=== PATIENT | male | born 1960 | race Caucasian/White ===

== ENCOUNTER → 2017-12-16 | Outpatient (CLI) | payer OTHER ==
--- NOTE | 2017-12-16 14:17 | MR ---
EXAMINATION TYPE: MR lumbar spine wo con DATE OF EXAM: 12/16/2017 COMPARISON: HISTORY: Intervertebral disc degeneration, lumbar CONTRAST: 0 mL intravenous . TECHNIQUE: Multiplanar, multisequence images of the lumbar spine were acquired. FINDINGS: L5-S1: There is some central disc bulge with anterior thecal sac contact. No spinal canal stenosis or nerve root impingement or foraminal stenosis is evident. Mild facet hypertrophy is present. L4-L5: Central focal disc bulge is present with moderate anterior thecal sac compression. No AP spina l canal stenosis is present. Severe right foraminal narrowing is present secondary to disc material .. L3-L4: Mild disc bulge has anterior thecal sac flattening. No spinal canal stenosis. No foraminal s tenosis. . L2-L3: Mild disc bulge has anterior thecal sac flattening. No focal disc herniation is evident. No s birgit canal stenosis. No foraminal stenosis. . L1-L2: No significant disc bulge or disc herniation. No spinal canal stenosis. No foraminal stenosi s. . T12-L1: No significant disc bulge or disc herniation. No spinal canal stenosis. No foraminal stenos is. . IMPRESSION: 1. Mild disc bulging mid to lower lumbar spine. 2. Central focal bulging L4-5 with moderate anterior thecal sac compression without stenosis. 3. Severe right foraminal stenosis L4-5. Correlate with right L5 radicular symptoms.
== END | disposition home or self-care (01) ==
LOC: RADMRIMAIN 10:20
PROVIDERS: ATTEND Family Medicine
DX: M99.73 Connective tissue and disc stenosis of intervertebral foramina of lumbar region (principal); M51.26 Other intervertebral disc displacement, lumbar region
CPT/HCPCS: 72148

== ENCOUNTER 2019-01-10 11:46 | Observation (INO) | payer OTHER ==
[2019-01-10] MEDS ORDERED: NITROGLYCERIN OINT 1 INCH/GM PACKET TOPICAL STA (12:26)
[2019-01-10] MEDS ORDERED: ASPIRIN 81 MG PO STA (12:26)
--- NOTE | 2019-01-10 12:29 | ED ---
General Adult HPI - General Chief complaint: Chest Pain Stated complaint: chest pain Time Seen by Provider: 01/10/19 12:12 Source: patient, RN notes reviewed Mode of arrival: ambulatory Limitations: no limitations - History of Present Illness Initial comments: Patient is a pleasant 58-year-old male presenting to the emergency Department with complaints of chest discomfort. Patient did have a compression fracture of the mid back once ago and has had some mild chest discomfort since that time. Patient was told this was related to his back however is not getting better. Patient states symptoms have worsened over the past few days. Discomfort feels like pressure. There is some radiation towards the back. Patient is unclear whether or not this could be related with his compression fracture. Patient states discomfort does increase with deep breaths otherwise no dyspnea. No nausea. No diaphoresis. No leg pain or leg swelling. Patient does have history of previous pulmonary embolism. - Related Data Home Medications Medication Instructions Recorded Confirmed Acetaminophen [Tylenol] 650 mg PO TID PRN 01/10/19 01/10/19 Albuterol Sulfate [Proair Hfa] 2 puff INHALATION RT-Q6H PRN 01/10/19 01/10/19 Atorvastatin [Lipitor] 20 mg PO DAILY 01/10/19 01/10/19 Baclofen [Lioresal] 10 mg PO DAILY PRN 01/10/19 01/10/19 Cholecalciferol [Vitamin D3 (25 1,000 unit PO DAILY 01/10/19 01/10/19 Mcg = 1000 Iu)] Loratadine [Claritin] 10 mg PO DAILY 01/10/19 01/10/19 Meloxicam 15 mg PO DAILY 01/10/19 01/10/19 Omeprazole 20 mg PO BID 01/10/19 01/10/19 lamoTRIgine [LaMICtal] 25 mg PO BID 01/10/19 01/10/19 Allergies Allergy/AdvReac Type Severity Reaction Status Date / Time No Known Allergies Allergy Verified 01/10/19 12:49 Review of Systems ROS Statement: Those systems with pertinent positive or pertinent negative responses have been documented in the HPI. ROS Other: All systems not noted in ROS Statement are negative. Constitutional: Denies: fever Eyes: Denies: eye pain ENT: Denies: ear pain Respiratory: Denies: cough, dyspnea Cardiovascular: Reports: chest pain Endocrine: Denies: fatigue Gastrointestinal: Denies: abdominal pain Genitourinary: Denies: dysuria Musculoskeletal: Reports: as per HPI Skin: Denies: rash Neurological: Denies: weakness Past Medical History Past Medical History: Asthma Additional Past Medical History / Comment(s): chronic back pain History of Any Multi-Drug Resistant Organisms: None Reported Past Psychological History: No Psychological Hx Reported Smoking Status: Never smoker Past Alcohol Use History: None Reported Past Drug Use History: None Reported General Exam Limitations: no limitations General appearance: alert, in no apparent distress Head exam: Present: atraumatic Eye exam: Present: normal appearance ENT exam: Present: normal oropharynx Neck exam: Present: normal inspection Respiratory exam: Present: normal lung sounds bilaterally. Absent: chest wall tenderness Cardiovascular Exam: Present: regular rate, normal rhythm Expanded Peripheral pulses: 2+: Radial (R), Radial (L), Dorsalis Pedis (R), Dorsalis Pedis (L) GI/Abdominal exam: Present: soft. Absent: tenderness Extremities exam: Present: normal inspection. Absent: pedal edema, calf tenderness Back exam: Present: normal inspection. Absent: tenderness Neurological exam: Present: alert Psychiatric exam: Present: normal affect, normal mood Skin exam: Present: normal color Course Vital Signs 01/10/19 01/10/19 01/10/19 11:57 13:00 13:23 Temperature 98.4 F Pulse Rate 77 Respiratory 18 16 16 Rate Blood Pressure 169/91 130/93 O2 Sat by Pulse 98 97 Oximetry 01/10/19 14:00 Temperature Pulse Rate 70 Respiratory 16 Rate Blood Pressure 152/90 O2 Sat by Pulse 97 Oximetry EKG Findings - EKG Comments: EKG Findings:: Normal sinus rhythm 78. DC 158. QRS 90. QT 350. QTC 399. Normal axis. Normal QRS. No acute ST change. Medical Decision Making - Medical Decision Making Patient reevaluated and updated. Case was discussed with Dr. Aguilar, who will admit covering for hospital call. - Lab Data Result diagrams: 01/10/19 13:02 01/10/19 13:02 Lab Results 01/10/19 01/10/19 01/10/19 Range/Units 13:02 13:02 13:02 WBC 7.3 (3.8-10.6) k/uL RBC 4.55 (4.30-5.90) m/uL Hgb 13.7 (13.0-17.5) gm/dL Hct 40.5 (39.0-53.0) % MCV 89.1 (80.0-100.0) fL MCH 30.2 (25.0-35.0) pg MCHC 33.9 (31.0-37.0) g/dL RDW 13.9 (11.5-15.5) % Plt Count 181 (150-450) k/uL Neutrophils % 54 % Lymphocytes % 31 % Monocytes % 7 % Eosinophils % 5 % Basophils % 1 % Neutrophils # 3.9 (1.3-7.7) k/uL Lymphocytes # 2.3 (1.0-4.8) k/uL Monocytes # 0.5 (0-1.0) k/uL Eosinophils # 0.4 (0-0.7) k/uL Basophils # 0.1 (0-0.2) k/uL PT 10.3 (9.0-12.0) sec INR 1.0 (<1.2) APTT 23.4 (22.0-30.0) sec Sodium 140 (137-145) mmol/L Potassium 4.3 (3.5-5.1) mmol/L Chloride 105 (98-107) mmol/L Carbon Dioxide 28 (22-30) mmol/L Anion Gap 7 mmol/L BUN 18 (9-20) mg/dL Creatinine 0.95 (0.66-1.25) mg/dL Est GFR (CKD-EPI)AfAm >90 (>60 ml/min/1.73 sqM) Est GFR (CKD-EPI)NonAf 89 (>60 ml/min/1.73 sqM) Glucose 106 H (74-99) mg/dL Calcium 8.9 (8.4-10.2) mg/dL Magnesium 1.7 (1.6-2.3) mg/dL Total Bilirubin 0.3 (0.2-1.3) mg/dL AST 23 (17-59) U/L ALT 29 (21-72) U/L Alkaline Phosphatase 37 L (38-126) U/L Troponin I (0.000-0.034) ng/mL Total Protein 6.2 L (6.3-8.2) g/dL Albumin 3.9 (3.5-5.0) g/dL 01/10/19 Range/Units 13:02 WBC (3.8-10.6) k/uL RBC (4.30-5.90) m/uL Hgb (13.0-17.5) gm/dL Hct (39.0-53.0) % MCV (80.0-100.0) fL MCH (25.0-35.0) pg MCHC (31.0-37.0) g/dL RDW (11.5-15.5) % Plt Count (150-450) k/uL Neutrophils % % Lymphocytes % % Monocytes % % Eosinophils % % Basophils % % Neutrophils # (1.3-7.7) k/uL Lymphocytes # (1.0-4.8) k/uL Monocytes # (0-1.0) k/uL Eosinophils # (0-0.7) k/uL Basophils # (0-0.2) k/uL PT (9.0-12.0) sec INR (<1.2) APTT (22.0-30.0) sec Sodium (137-145) mmol/L Potassium (3.5-5.1) mmol/L Chloride (98-107) mmol/L Carbon Dioxide (22-30) mmol/L Anion Gap mmol/L BUN (9-20) mg/dL Creatinine (0.66-1.25) mg/dL Est GFR (CKD-EPI)AfAm (>60 ml/min/1.73 sqM) Est GFR (CKD-EPI)NonAf (>60 ml/min/1.73 sqM) Glucose (74-99) mg/dL Calcium (8.4-10.2) mg/dL Magnesium (1.6-2.3) mg/dL Total Bilirubin (0.2-1.3) mg/dL AST (17-59) U/L ALT (21-72) U/L Alkaline Phosphatase (38-126) U/L Troponin I <0.012 (0.000-0.034) ng/mL Total Protein (6.3-8.2) g/dL Albumin (3.5-5.0) g/dL - Radiology Data Radiology results: report reviewed (Computed tomography scan of the chest shows no pulmonary embolism. Thoracic compression deformity. Hepatic lesion.) Disposition Clinical Impression: Chest pain Disposition: ADMITTED IP TO THIS HOSP Is patient prescribed a controlled substance at d/c from ED?: No Referrals: Nonstaff,Physician [Primary Care Provider] - 1-2 days Decision Time: 15:58
[2019-01-10 13:18] LABS: Basophils # (A) 0.1 k/uL (0-0.2); Basophils % (A) 1 %; Eosinophils # (A) 0.4 k/uL (0-0.7); Eosinophils % (A) 5 %; HCT 40.5 % (39.0-53.0); HGB 13.7 gm/dL (13.0-17.5); Lymphocytes # (A) 2.3 k/uL (1.0-4.8); Lymphocytes % (A) 31 %; MCH 30.2 pg (25.0-35.0); MCHC 33.9 g/dL (31.0-37.0); MCV 89.1 fL (80.0-100.0); Mean Platelet Volume 7.5; Monocytes # (A) 0.5 k/uL (0-1.0); Monocytes % (A) 7 %; Neutrophils # (A) 3.9 k/uL (1.3-7.7); Neutrophils % (A) 54 %; Platelet Count 181 k/uL (150-450); RBC 4.55 m/uL (4.30-5.90); RDW 13.9 % (11.5-15.5); WBC 7.3 k/uL (3.8-10.6)
[2019-01-10 13:34] LABS: ALT 29 U/L (21-72); AST 23 U/L (17-59); African American GFR (CKD) >90 (>60 ml/min/1.73 sqM); Albumin 3.9 g/dL (3.5-5.0); Alkaline Phosphatase 37 U/L (38-126); Anion Gap 7 mmol/L; Blood Urea Nitrogen 18 mg/dL (9-20); Calcium 8.9 mg/dL (8.4-10.2); Carbon Dioxide 28 mmol/L (22-30); Chloride 105 mmol/L (98-107); Glucose 106 mg/dL (74-99); Magnesium 1.7 mg/dL (1.6-2.3); Partial Thromboplastin Time 23.4 sec (22.0-30.0); Potassium 4.3 mmol/L (3.5-5.1); Prothrombin Time 10.3 sec (9.0-12.0); Sodium 140 mmol/L (137-145); Total Bilirubin 0.3 mg/dL (0.2-1.3); Total Protein 6.2 g/dL (6.3-8.2)
--- NOTE | 2019-01-10 15:20 | CT ---
EXAMINATION TYPE: CT angio chest DATE OF EXAM: 01/10/2019 COMPARISON: NONE HISTORY: Mid chest pain. History of PE and thoracic compression fracture. CT DLP: 472.2 mGycm. Automated Exposure Control for Dose Reduction was Utilized. CONTRAST: CTA scan of the thorax is performed with IV Contrast, patient injected with 100 mL of Isovue 370, pul monary embolism protocol. MIP Images are created on CT scanner and reviewed. FINDINGS: LUNGS: The lungs are grossly clear, there is no concerning parenchymal mass or nodule identified. T here is no pleural effusion or pneumothorax seen. The tracheobronchial tree is patent. MEDIASTINUM: There is satisfactory enhancement of the pulmonary artery and its branches, there is no CT evidence for pulmonary embolism. There are no greater than 1 cm hilar or mediastinal lymph nodes. No cardiomegaly or pericardial effusion is seen. Probable residual thymic tissue is strand-like in the superior mediastinum. This does not have a well formed masslike appearance. OTHER: Mild multilevel degenerative disc disease of the thoracic spine is seen. Midthoracic compressi on deformity is mild with height loss of approximately-15% and superior endplate Schmorl's node. Too small to accurately characterize hepatic lesion measures 7 mm on series 401 image 138. IMPRESSION: 1. No evidence of pulmonary embolism. 2. No focal consolidation, pneumothorax. 3. Midthoracic compression deformity is mild and known to the patient per history. 4. Incidentally noted 2 small to accurately characterize 7 mm hepatic lesion and probable residual th ymic tissue in the superior mediastinum
[2019-01-10] MEDS ORDERED: NITROGLYCERIN SL TABS 0.4 MG TAB SUBLINGUAL PRN (15:58)
[2019-01-10] MEDS: NITROGLYCERIN OINT 1 INCH/GM PACKET TOPICAL SCH ×2 (18:09→23:22)
[2019-01-10] MEDS ORDERED: ACETAMINOPHEN TAB 325 MG TAB PO PRN (18:35)
[2019-01-10] MEDS ORDERED: BACLOFEN 10 MG TAB PO PRN (18:35)
[2019-01-10] MEDS ORDERED: ALBUTEROL NEBULIZED 2.5 MG/3 ML INHALATION PRN (18:35)
[2019-01-10] MEDS ORDERED: HYDROmorphone 0.5 MG/0.5 ML SYRINGE IVP PRN (18:37)
[2019-01-10] MEDS ORDERED: TEMAZEPAM 15 MG CAP PO PRN (18:37)
[2019-01-10] MEDS ORDERED: ALPRAZolam 0.25 MG TAB PO PRN (18:37)
--- NOTE | 2019-01-10 19:12 | XR ---
EXAMINATION TYPE: XR thoracic spine 2V DATE OF EXAM: 01/10/2019 COMPARISON: NONE HISTORY: Back pain TECHNIQUE: 3 views FINDINGS: Thoracic vertebra have normal spacing and alignment. Posterior elements are intact. There i s no paraspinal mass. There is no sign of compression fracture. IMPRESSION: Negative thoracic spine exam.
--- NOTE | 2019-01-10 19:14 | XR ---
EXAMINATION TYPE: XR chest 1V portable DATE OF EXAM: 01/10/2019 COMPARISON: NONE HISTORY: Chest pain TECHNIQUE: Single frontal view of the chest is obtained. FINDINGS: Heart and mediastinum are normal. Lungs are clear. Diaphragm is normal. Bony thorax appear s normal. There are chest leads. IMPRESSION: Normal chest
[2019-01-10] MEDS: lamoTRIgine 25 MG TAB PO SCH (19:59)
[2019-01-10] MEDS: HYDROcodone/APAP 5-325MG 1 EACH TAB PO PRN (20:00)
[2019-01-10] MEDS ORDERED: NON FORMULARY DRUG (Omeprazole [Omeprazole] 20 MG) PO SCH (21:00)
[2019-01-10] MEDS ORDERED: GABAPENTIN 300 MG CAP PO SCH (21:00)
[2019-01-10] MEDS ORDERED: HEPARIN SODIUM,PORCINE 5,000 UNIT/ML 1 ML VIAL SQ SCH (21:00)
[2019-01-10 21:16] LABS: Appearance,Urine Clear (Clear); Bilirubin,Urine Negative (Negative); Blood,Urine Negative (Negative); Color,Urine Yellow; Glucose,Urine (UA) Negative (Negative); Ketones,Urine Negative (Negative); Leukocyte Esterase,Urine Negative (Negative); Nitrite,Urine Negative (Negative); Protein,Urine Negative (Negative); Urobilinogen,Urine <2.0 mg/dL (<2.0)
[2019-01-10 21:18] LABS: Specific Gravity,Urine 1.049 (1.001-1.035)
--- NOTE | 2019-01-11 01:59 | HP ---
HISTORY AND PHYSICAL CHIEF COMPLAINT: Back pain. HISTORY OF PRESENT ILLNESS: This 58-year-old gentleman with a past medical history of asthma GERD, history of hypertension, history of DJD, history of pneumonia, history of pulmonary embolism [facility], was complaining of back pain. The patient apparently had a compression fracture discovered in September. The patient was complaints of back pain and neck pain. The patient came to [facility] and was admitted for evaluation treatment. Because of concerns of recurrent PE, a CTA chest was done which showed no evidence of pulmonary embolism and mid thoracic compression deformity with height loss about 15% was noted. There is no history of fever, rigors or chills. No history of headache, loss of consciousness or seizures at this time. PAST MEDICAL HISTORY: History of asthma, GERD, hypertension, hyperlipidemia, history of DJD, history of pulmonary embolism, chronic back pain. MEDICATIONS: 1. Neurontin 600 mg q.h.s. 3. Lioresal 10 mg daily p.r.n. 4. Albuterol 2 puffs q.6h p.r.n. 5. Tylenol 650 t.i.d. p.r.n. 6. Omeprazole 20 mg b.i.d. 7. Meloxicam 15 mg p.o. daily. 8. Lamictal 25 mg p.o. b.i.d. 9. Claritin 10 mg p.o. daily. 10.Vitamin D3 1000 daily. 11.Lipitor 20 mg daily. ALLERGIES: None. FAMILY HISTORY: History of cancer in the family. SOCIAL HISTORY: No history of smoking. Occasional alcohol intake. REVIEW OF SYSTEMS: ENT: No diminished vision. No diminished hearing. CARDIOVASCULAR: No angina. RESPIRATORY: As mentioned earlier. GI: No nausea, vomiting. : No dysuria. NERVOUS SYSTEM: No numbness or weakness. ALLERGY: No asthma or hayfever. MUSCULOSKELETAL: As mentioned earlier. HEMATOLOGY: No history of anemia. ENDOCRINE: No history of diabetes or hypothyroidism. CONSTITUTIONAL: As mentioned earlier. PSYCHIATRY: As mentioned earlier. PHYSICAL EXAMINATION: Alert and oriented x3. The pulse is 98, blood pressure 157/103, respiration 18, temperature 98.2, pulse ox 98% on room air HEENT: Conjunctivae normal. Oral mucosa moist. NECK: No jugular venous distention. No lymph node enlargement. CARDIOVASCULAR: S1, S2. RESPIRATORY: Diminished breath sounds at the bases. No rhonchi, no crackles. ABDOMEN: Soft, nontender. LEGS: No edema, no swelling. NERVOUS SYSTEM: Higher functions mentioned earlier. Moves all four limbs. No focal deficits. LYMPHATICS: No lymph node in neck or axilla. SKIN: No rash. JOINTS: No active deforming arthropathy. Examination of the back, some minimal tenderness present in the mid thoracic area. LAB: CBC within normal limits and glucose 106. Total protein 6.0. ASSESSMENT: 1. Severe back pain, neck pain possibly secondary to compression fracture mid thoracic area. 2. History of asthma. 3. Gastroesophageal reflux disease. 4. Hypertension. 5. Hyperlipidemia. 6. Degenerative joint disease. 7. History of pneumonia. 8. History of pulmonary embolism. 9. Chronic back pain. 10.Attention deficit disorder/attention deficit hyperactivity disorder. 11.Anxiety and depression. RECOMMENDATION AND DISCUSSION: This 58-year-old gentleman presented with multiple medical problems. At this time I recommend to continue current management, continue symptomatic treatment, resume home medications. Otherwise, we will consult Dr. Kaye for orthopedic evaluation. Basic labs also will be ordered. See orders for details. Guarded prognosis. Further recommendations to follow. MMODL / IJN: [id number] / MTDD
[2019-01-11] MEDS: HYDROcodone/APAP 5-325MG 1 EACH TAB PO PRN (04:34)
[2019-01-11] MEDS: NITROGLYCERIN OINT 1 INCH/GM PACKET TOPICAL SCH (06:33)
[2019-01-11 06:35] LABS: Basophils # (A) 0.1 k/uL (0-0.2); Basophils % (A) 1 %; Eosinophils # (A) 0.3 k/uL (0-0.7); Eosinophils % (A) 5 %; HCT 41.5 % (39.0-53.0); HGB 13.7 gm/dL (13.0-17.5); Lymphocytes # (A) 2.7 k/uL (1.0-4.8); Lymphocytes % (A) 41 %; MCH 29.6 pg (25.0-35.0); MCHC 33.1 g/dL (31.0-37.0); MCV 89.5 fL (80.0-100.0); Mean Platelet Volume 7.2; Monocytes # (A) 0.5 k/uL (0-1.0); Monocytes % (A) 7 %; Neutrophils # (A) 2.8 k/uL (1.3-7.7); Neutrophils % (A) 44 %; Platelet Count 194 k/uL (150-450); RBC 4.64 m/uL (4.30-5.90); RDW 13.8 % (11.5-15.5); WBC 6.5 k/uL (3.8-10.6)
[2019-01-11 06:41] LABS: African American GFR (CKD) >90 (>60 ml/min/1.73 sqM); Anion Gap 6 mmol/L; Blood Urea Nitrogen 22 mg/dL (9-20); Calcium 8.5 mg/dL (8.4-10.2); Carbon Dioxide 29 mmol/L (22-30); Chloride 105 mmol/L (98-107); Cholesterol 190 mg/dL (<200); Glucose 91 mg/dL (74-99); HDL Cholesterol 30 mg/dL (40-60); Potassium 4.3 mmol/L (3.5-5.1); Sodium 140 mmol/L (137-145)
[2019-01-11 06:53] LABS: Triglycerides 726 mg/dL (<150)
[2019-01-11] MEDS ORDERED: PANTOPRAZOLE 40 MG TABLET PO SCH (07:30)
[2019-01-11 07:35] VITALS: PULSE 67; RESP 17
[2019-01-11] MEDS: lamoTRIgine 25 MG TAB PO SCH (08:53)
--- NOTE | 2019-01-11 08:55 | P.CRDCN ---
History of Present Illness Consult date: 01/11/19 Chief complaint: Chest pain History of present illness: This is a pleasant 58-year-old gentleman with a past medical history significant for dyslipidemia who recently, in September 2018, had a compression fracture of the back, and since then he has been experiencing back pain. Yesterday the back pain has gotten worse and beside that he was experiencing chest discomfort once he takes a deep breath. No associated symptoms of shortness of breath, d izziness, heart racing, or syncope. The patient was diagnosed with PE about 4-5 years ago and he was on anticoagulation which was stopped. Because of that, and because his symptoms were very similar to what he had in the past, he decided to come to the emergency room. They cardiac workup came in to be unremarkable. Enzymes are unremarkable. The EKG did not show any significant ST or T-wave ab normalities. The computed tomography scan of the chest showed no PE. Currently the patient is chest pain-free and he states also that his back pain has improved. No other symptoms of fever or chills, nausea or vomiting, diarrhea, cough, or any other symptoms. From a cardiovascular standpoint of view, the patient can be discharged home. Past Medical History Past Medical History: Asthma, GERD/Reflux, Hearing Disorder / Deafness, Hyperlipidemia, Hypertension, Musculoskeletal Disorder, Osteoarthritis (OA), Pneumonia, Pulmonary Embolus (PE) Additional Past Medical History / Comment(s): chronic back pain, DDD, Osteopenia, Lordosis History of Any Multi-Drug Resistant Organisms: None Reported Additional Past Surgical History / Comment(s): Oral surgery Past Anesthesia/Blood Transfusion Reactions: No Reported Reaction Past Psychological History: ADD/ADHD, Anxiety, Depression Smoking Status: Never smoker Past Alcohol Use History: None Reported Past Drug Use History: None Reported - Past Family History Mother Family Medical History: Cancer Father Family Medical History: Chest Pain / Angina Medications and Allergies Home Medications Medication Instructions Recorded Confirmed Type Acetaminophen [Tylenol] 650 mg PO TID PRN 01/10/19 01/10/19 History Albuterol Sulfate [Proair Hfa] 2 puff INHALATION RT-Q6H PRN 01/10/19 01/10/19 History Atorvastatin [Lipitor] 20 mg PO DAILY 01/10/19 01/10/19 History Baclofen [Lioresal] 10 mg PO DAILY PRN 01/10/19 01/10/19 History Cholecalciferol [Vitamin D3 (25 1,000 unit PO DAILY 01/10/19 01/10/19 History Mcg = 1000 Iu)] Gabapentin [Neurontin] 300 mg PO DAILY 01/10/19 01/10/19 History Gabapentin [Neurontin] 600 mg PO HS 01/10/19 01/10/19 History Loratadine [Claritin] 10 mg PO DAILY 01/10/19 01/10/19 History Meloxicam 15 mg PO DAILY 01/10/19 01/10/19 History Omeprazole 20 mg PO BID 01/10/19 01/10/19 History lamoTRIgine [LaMICtal] 25 mg PO BID 01/10/19 01/10/19 History Allergies Allergy/AdvReac Type Severity Reaction Status Date / Time No Known Allergies Allergy Verified 01/10/19 12:49 Physical Exam Vitals: Vital Signs Temp Pulse Pulse Pulse Resp BP BP 01/11/19 07:34 98.3 F 67 17 139/95 01/11/19 04:00 98.2 F 61 16 137/84 01/11/19 00:00 98.3 F 84 15 133/81 01/10/19 19:00 98.7 F 75 15 145/80 01/10/19 16:54 98.3 F 98 18 157/103 01/10/19 14:00 70 16 152/90 01/10/19 13:23 16 01/10/19 13:00 16 130/93 01/10/19 11:57 98.4 F 77 18 169/91 Pulse Ox 01/11/19 07:34 97 01/11/19 04:00 97 01/11/19 00:00 97 01/10/19 19:00 98 01/10/19 16:54 98 01/10/19 14:00 97 01/10/19 13:23 01/10/19 13:00 97 01/10/19 11:57 98 Intake and Output 01/10/19 01/11/19 01/11/19 22:59 06:59 14:59 Intake Total 200 Output Total 275 Balance -75 Intake: Oral 200 Output: Urine 275 Other: Voiding Method Toilet Toilet Toilet # Voids 2 - Constitutional General appearance: no acute distress - Respiratory Respiratory: bilateral: CTA - Cardiovascular Rhythm: regular Heart sounds: normal: S1, S2 Results 01/11/19 06:19 01/11/19 06:19 Cardiac Enzymes 01/10/19 01/10/19 01/10/19 Range/Units 13:02 13:02 18:57 AST 23 (17-59) U/L Troponin I <0.012 <0.012 (0.000-0.034) ng/mL 01/11/19 Range/Units 00:53 AST (17-59) U/L Troponin I <0.012 (0.000-0.034) ng/mL Coagulation 01/10/19 Range/Units 13:02 PT 10.3 (9.0-12.0) sec APTT 23.4 (22.0-30.0) sec Lipids 01/11/19 Range/Units 06:19 Triglycerides 726 H (<150) mg/dL Cholesterol 190 (<200) mg/dL HDL Cholesterol 30 L (40-60) mg/dL CBC 01/10/19 01/11/19 Range/Units 13:02 06:19 WBC 7.3 6.5 (3.8-10.6) k/uL RBC 4.55 4.64 (4.30-5.90) m/uL Hgb 13.7 13.7 (13.0-17.5) gm/dL Hct 40.5 41.5 (39.0-53.0) % Plt Count 181 194 (150-450) k/uL Comprehensive Metabolic Panel 01/10/19 01/11/19 Range/Units 13:02 06:19 Sodium 140 140 (137-145) mmol/L Potassium 4.3 4.3 (3.5-5.1) mmol/L Chloride 105 105 (98-107) mmol/L Carbon Dioxide 28 29 (22-30) mmol/L BUN 18 22 H (9-20) mg/dL Creatinine 0.95 0.93 (0.66-1.25) mg/dL Glucose 106 H 91 (74-99) mg/dL Calcium 8.9 8.5 (8.4-10.2) mg/dL AST 23 (17-59) U/L ALT 29 (21-72) U/L Alkaline Phosphatase 37 L (38-126) U/L Total Protein 6.2 L (6.3-8.2) g/dL Albumin 3.9 (3.5-5.0) g/dL Current Medications Generic Name Dose Route Start Last Admin Trade Name Freq PRN Reason Stop Dose Admin Acetaminophen 650 mg 01/10/19 18:35 Tylenol Tab PO TID PRN Pain Hydrocodone Bitart/Acetaminophen 1 each 01/10/19 18:37 01/11/19 04:34 [place] 5-325 PO 1 each Q6HR PRN Administration Pain Albuterol Sulfate 2.5 mg 01/10/19 18:35 Ventolin Nebulized INHALATION RT-Q6H PRN Shortness Of Breath Alprazolam 0.25 mg 01/10/19 18:37 Xanax PO TID PRN Anxiety Aspirin 325 mg 01/11/19 09:00 Aspirin PO DAILY [facility] Atorvastatin Calcium 20 mg 01/11/19 09:00 Lipitor PO DAILY [facility] Baclofen 10 mg 01/10/19 18:35 01/10/19 19:59 Lioresal PO 10 mg DAILY PRN Administration Muscle Pain Cholecalciferol 1,000 unit 01/11/19 09:00 Vitamin D3 (25 Mcg = 1000 Iu) PO DAILY [facility] Gabapentin 600 mg 01/10/19 21:00 01/10/19 19:59 Neurontin PO 600 mg HS [facility] Administration Gabapentin 300 mg 01/11/19 09:00 Neurontin PO DAILY [facility] Heparin Sodium (Porcine) 5,000 unit 01/10/19 21:00 01/10/19 20:00 Heparin SQ 5,000 unit Q12HR [facility] Administration Hydromorphone HCl 0.5 mg 01/10/19 18:37 Dilaudid IVP Q6HR PRN Severe Pain Lamotrigine 25 mg 01/10/19 21:00 01/10/19 19:59 Lamictal PO 25 mg BID [facility] Administration Loratadine 10 mg 01/11/19 09:00 Claritin PO DAILY [facility] Meloxicam 15 mg 01/11/19 09:00 Mobic PO DAILY [facility] Nitroglycerin 0.4 mg 01/10/19 15:58 Nitrostat SUBLINGUAL Q5M PRN Chest Pain Nitroglycerin 1 inch 01/10/19 18:00 01/11/19 06:33 Nitro-Bid Oint TOPICAL Not Given Q6HR [facility] Pantoprazole Sodium 40 mg 01/11/19 07:30 Protonix PO AC-BRKFST [facility] Temazepam 15 mg 01/10/19 18:37 01/10/19 20:06 Restoril PO 15 mg HS PRN Administration Insomnia Intake and Output 01/10/19 01/11/19 01/11/19 22:59 06:59 14:59 Intake Total 200 Output Total 275 Balance -75 Intake: Oral 200 Output: Urine 275 Other: Voiding Method Toilet Toilet Toilet # Voids 2 01/11/19 06:19 01/11/19 06:19 Assessment and Plan Assessment: Assessment #1 upper back pain related to compression fracture #2 atypical chest discomfort which has resolved #3 dyslipidemia Plan #1 acute coronary event was ruled out #2 the patient can be discharged home. I will follow-up with the patient as an outpatient. Possible stress test as an outpatient. Thank you for allowing us participate in his care
[2019-01-11] MEDS ORDERED: ATORVASTATIN 20 MG TAB PO SCH (09:00)
[2019-01-11] MEDS ORDERED: GABAPENTIN 300 MG CAP PO SCH (09:00)
[2019-01-11] MEDS ORDERED: CHOLECALCIFEROL 1,000 UNIT TAB PO SCH (09:00)
[2019-01-11] MEDS ORDERED: LORATADINE 10 MG TAB PO SCH (09:00)
[2019-01-11] MEDS ORDERED: ASPIRIN 325 MG TAB PO SCH (09:00)
[2019-01-11] MEDS ORDERED: MELOXICAM 7.5 MG TAB PO SCH (09:00)
[2019-01-11 11:41] VITALS: BP 157/93; TEMP 98.7
[2019-01-11] MEDS ORDERED: BACLOFEN 10 MG TAB PO PRN (11:49)
--- NOTE | 2019-01-11 14:02 | P.CNOR ---
History of Present Illness - [facility] Consult date: 01/11/19 Requesting physician: Erica Aguilar Consult reason: fracture (Midthoracic compression fracture deformity), back pain (Thoracic back pain) History of present illness: Patient is very pleasant 58-year-old male who is seen examined at bedside for further evaluation in regards to thoracic back pain. Patient presented to the emergency department yesterday with increased chest pain. He was worried about possible pulmonary embolism as he does have a history of blood clots. During his admission he does admit to ongoing thoracic back pain. He states he was working on some paperwork for insurance/disability in September 2018 at which time thoracic imaging was taken and he was diagnosed with a compression fracture at his mid thoracic spine at that time. He denies any specific injuries. He denies any injuries at the time of the x-ray imaging. He is unsure of when he first had the compression fracture deformity. During his admission a CTA of the chest was performed which was negative for pulmonary embolus. He is been seen and examined by cardiology who has signed off on the patient. Patient states this is admission his pain has improved back to his baseline. He does have some ongoing midthoracic back pain. He states he is known have significant changes of his cervical spine and lumbar spine. He states he has previously followed with a surgeon in [place], [place] and discussed the possibility of surgical intervention at his lumbar spine. He states he has been unable to proceed for surgical intervention as [facility] He states he recently lost his insurance. He states currently his symptoms are most significant in the cervical spine and lumbar spine and are chronic in nature. He does not further wish to have evaluation at his cervical spine and lumbar spine during this admission to the hospital. 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 Past Medical History Past Medical History: Asthma, GERD/Reflux, Hearing Disorder / Deafness, Hyperlipidemia, Hypertension, Musculoskeletal Disorder, Osteoarthritis (OA), Pneumonia, Pulmonary Embolus (PE) Additional Past Medical History / Comment(s): chronic back pain, DDD, Osteopenia, Lordosis History of Any Multi-Drug Resistant Organisms: None Reported Additional Past Surgical History / Comment(s): Oral surgery Past Anesthesia/Blood Transfusion Reactions: No Reported Reaction Past Psychological History: ADD/ADHD, Anxiety, Depression Smoking Status: Never smoker Past Alcohol Use History: None Reported Past Drug Use History: None Reported - Past Family History Mother Family Medical History: Cancer Father Family Medical History: Chest Pain / Angina Medications and Allergies Home Medications Medication Instructions Recorded Confirmed Type Acetaminophen [Tylenol] 650 mg PO TID PRN 01/10/19 01/10/19 History Albuterol Sulfate [Proair Hfa] 2 puff INHALATION RT-Q6H PRN 01/10/19 01/10/19 History Atorvastatin [Lipitor] 20 mg PO DAILY 01/10/19 01/10/19 History Baclofen [Lioresal] 10 mg PO TID 01/10/19 01/11/19 History Cholecalciferol [Vitamin D3 (25 1,000 unit PO DAILY 01/10/19 01/10/19 History Mcg = 1000 Iu)] Gabapentin [Neurontin] 300 mg PO DAILY 01/10/19 01/10/19 History Gabapentin [Neurontin] 600 mg PO HS 01/10/19 01/10/19 History Loratadine [Claritin] 10 mg PO DAILY 01/10/19 01/10/19 History Meloxicam 15 mg PO DAILY 01/10/19 01/10/19 History Omeprazole 20 mg PO BID 01/10/19 01/10/19 History lamoTRIgine [LaMICtal] 25 mg PO BID 01/10/19 01/10/19 History HYDROcodone/APAP 5-325MG [[place] 1 each PO Q6HR PRN #9 tab 01/11/19 Rx 5-325] Allergies Allergy/AdvReac Type Severity Reaction Status Date / Time No Known Allergies Allergy Verified 01/10/19 12:49 Physical Examination Physical exam: Patient is awake, alert, and oriented 3 Vital signs stable Good chest excursion with deep inspiration and expiration Examination of thoracic and lumbar spine reveals skin is intact with no abrasions, lacerations, or bruises; no erythema, purulence or signs of infection Some pain with palpation along the midline and over the paraspinals of the mid thoracic spine Pain with palpation along the midline of the lower lumbar spine Dorsiflexion, plantarflexion, and extensor hallucis longus positive sustained bilaterally Patient is able to stand on each leg independently and lift the opposite leg without any significant difficulty Patient is able to perform knee extension bilaterally without difficulty No signs or symptoms of DVT; no calf pain No pain with internal and external rotation of the hips bilaterally Neurovascularly intact Results Pertinent studies: CT of the chest taken on 01/10/2019: No evidence of pulmonary embolism; midthora cic compression fracture deformity mild with approximately 15% height loss of the superior endplate with Schmorl's node; no evidence of pneumothorax Thoracic spine x-ray taken on 01/10/2019: Overall alignment appears to be adequately maintained; intravertebral disc spacing is well-maintained; there may be evidence of a mild superior end plate compression fracture deformity of the mid thoracic spine - Labs Labs: Abnormal Lab Results - Last 24 Hours (Table) 01/10/19 01/10/19 01/11/19 Range/Units 13:02 20:57 06:19 BUN 22 H (9-20) mg/dL Glucose 106 H (74-99) mg/dL Alkaline Phosphatase 37 L (38-126) U/L Total Protein 6.2 L (6.3-8.2) g/dL Triglycerides 726 H (<150) mg/dL HDL Cholesterol 30 L (40-60) mg/dL Ur Specific [place] 1.049 H (1.001-1.035) H & H 01/10/19 01/11/19 Range/Units 13:02 06:19 Hgb 13.7 13.7 (13.0-17.5) gm/dL Hct 40.5 41.5 (39.0-53.0) % Coagulation 01/10/19 Range/Units 13:02 INR 1.0 (<1.2) Result Diagrams: 01/11/19 06:19 01/11/19 06:19 Assessment and Plan Assessment: Assessment: Thoracic back pain Known midthoracic compression fracture deformity of indeterminate age but most likely chronic Chronic cervical pain and lumbar pain Chest pain History of blood clot (1) Thoracic back pain Current Visit: Yes Status: Acute Code(s): M54.6 - PAIN IN THORACIC SPINE SNOMED Code(s): 405159921 (2) Thoracic compression fracture Current Visit: Yes Status: Acute Code(s): S22.000A - WEDGE COMPRESSION FRACTURE OF UNSP THORACIC VERTEBRA, INIT SNOMED Code(s): 438088258 (3) Chronic cervical pain Current Visit: Yes Status: Acute Code(s): M54.2 - CERVICALGIA; G89.29 - OTHER CHRONIC PAIN SNOMED Code(s): 2496899676093 (4) Chronic lumbar pain Current Visit: Yes Status: Acute Code(s): M54.5 - LOW BACK PAIN; G89.29 - OTHER CHRONIC PAIN SNOMED Code(s): 159863971 (5) History of blood clots Current Visit: Yes Status: Acute Code(s): Z86.718 - PERSONAL HISTORY OF OTHER VENOUS THROMBOSIS AND EMBOLISM SNOMED Code(s): 555055147 (6) Chest pain Current Visit: Yes Status: Acute Code(s): R07.9 - CHEST PAIN, UNSPECIFIED SNOMED Code(s): 36782301 Plan: Plan: 1. Patient has been discussed in detail with Dr. Edd Kaye. Imaging has been reviewed by myself and Dr. Edd Kaye. Patient does show evidence of a midthoracic compression fracture deformity of indeterminate age. He states he was previously diagnosed in September 2018 during insurance testing but states he is unsure of the time he sustained a compression fracture deformity. He does have some mild chronic thoracic back pain. He feels his symptoms have improved since his admission to the hospital. His most significant symptoms are in regards to chronic cervical pain and lumbar pain. At this time, we're not currently pl anning for bracing as his fracture appears to be more chronic in nature. Patient may also have difficulty with working through formal physical therapy as he no longer has any insurance. We discussed he may plan to follow up with his surgeon in [place], [place] for further treatment evaluation in regards to his known compression fracture deformity as well as further treatment and evaluation in regards to cervical spine and lumbar spines. He will also plan to continue [facility]. He states he was discussing possible surgical intervention at his lumbar spine previously pending approval by the [place]. We discussed that this time he is clear for discharge from an orthopedic spine standpoint. We will plan to have him follow up in the outpatient setting on an as needed basis. Patient does feel he may be ready for discharge home today. Patient feels overall this is a good plan of care. We discussed he may continue to work and participate in regular activities of daily living to tolerance. 2. Patient will continue to be seen and examined by medicine Time with Patient: Greater than 30 (Including obtaining history, physical examination, reviewing of imaging, and dictation.)
--- NOTE | 2019-01-12 06:03 | DS ---
DISCHARGE SUMMARY FINAL DIAGNOSES: 1. Severe back pain, possibly secondary to compression fracture of the mid thoracic area. 2. History of lower back pain, degenerative joint disease. 3. History of asthma. 4. Osteopenia. 5. Gastroesophageal reflux disease. 6. Hypertension. 7. Hyperlipidemia. 8. History of degenerative joint disease. 9. History of pneumonia. 10.History of pulmonary embolism. 11.History of chronic back pain. 12.Attention deficit disorder, attention deficit hyperactivity disorder. 13.Anxiety and depression. DISCHARGE DISPOSITION: The patient will be discharged in stable condition with guarded prognosis. HISTORY OF PRESENT ILLNESS: This 58-year-old gentleman with a past medical history of multiple medical problems admitted with back pain and multiple other medical issues was evaluated by Cardiology and as well as Orthopedic Surgery. Orthopedics recommended conservative line of management and the patient was treated closely. On exam, vitals are stable. CARDIOVASCULAR: S1, S2 muffled. ABDOMEN: Soft. NERVOUS SYSTEM: No focal deficits. DISCHARGE ADVICE: 1. Diet is cardiac. 2. Activity limited until followup. 3. Follow up with Dr. Preston in 2 to 3 days. 4. Follow up with Cardiology and as well as follow up with Orthopedics as recommended. MEDICATIONS: 1. Claritin 10 mg daily. 2. Lamictal 25 mg b.i.d. 3. Lioresal 10 mg t.i.d. 4. Lipitor 20 mg daily. 5. Meloxicam 15 mg daily. 6. Neurontin 300 mg daily and 600 mg q.h.s. 7. Omeprazole 20 mg b.i.d. 8. ProAir 2 puffs q.6 p.r.n. 9. Tylenol 650 t.i.d. p.r.n. 10.Vitamin D3, 1000 daily. 11.[place] 5 mg q.6 p.r.n. Once again the patient will be discharged in stable condition with guarded prognosis. MMODL / IJN: [id number] /
== END 2019-01-11 14:00 | disposition home or self-care (01) ==
LOC: EC 11:46 → 1SOBS 15:58
PROVIDERS: ADMIT Hospitalist; ATTEND Hospitalist
DX: R07.89 Other chest pain (principal); M54.6 Pain in thoracic spine; M48.54XA Collapsed vertebra, not elsewhere classified, thoracic region, initial encounter for fracture; G89.29 Other chronic pain; M54.5 Low back pain; M54.2 Cervicalgia; K21.9 Gastro-esophageal reflux disease without esophagitis; J45.909 Unspecified asthma, uncomplicated; I10 Essential (primary) hypertension; M19.90 Unspecified osteoarthritis, unspecified site; F32.9 Major depressive disorder, single episode, unspecified; F41.9 Anxiety disorder, unspecified; F90.9 Attention-deficit hyperactivity disorder, unspecified type; M85.80 Other specified disorders of bone density and structure, unspecified site; M40.50 Lordosis, unspecified, site unspecified; E78.5 Hyperlipidemia, unspecified; K76.9 Liver disease, unspecified; H91.90 Unspecified hearing loss, unspecified ear; Z79.1 Long term (current) use of non-steroidal anti-inflammatories (NSAID); Z79.899 Other long term (current) drug therapy; Z87.01 Personal history of pneumonia (recurrent); Z86.711 Personal history of pulmonary embolism; Z80.9 Family history of malignant neoplasm, unspecified; Z82.49 Family history of ischemic heart disease and other diseases of the circulatory system
CPT/HCPCS: 96372; 96374; 99285; 36415; 93005; 80061; 80053; 80048; 85652; 83735; 84484 ×2; 85025 ×2; 85610; 85730; 86140; 81003; 72070; 71045; 71275; G0378 ×2; J1644; J1170; Q9967

== ENCOUNTER → 2021-06-28 | Outpatient (CLI) | payer OTHER ==
--- NOTE | 2021-06-28 23:44 | MR ---
EXAMINATION TYPE: MR lumbar spine wo con DATE OF EXAM: 06/28/2021 COMPARISON: 12/16/2017 HISTORY: Chronic lower back pain, LLE radic. Multiplanar multiecho imaging of the lumbar spine without contrast. The vertebra have normal alignment. There is some degenerative disc space narrowing at L4-5 and L5-S1 . There is posterior disc bulging from L2 to S1. There is mild hypertrophic facet arthropathy in the mid and lower lumbar spine. There is right-sided L4-5 neural foraminal stenosis related to disc space narrowing and facet arthropathy. There is also less severe stress right-sided neural foraminal steno sis at L3-4. There is a mild relative spinal stenosis at L4-5. There is no lumbar paraspinal mass. Th ere is no compression fracture. I see no focal bone destruction. The sacroiliac joints appear intact. There is a left lateral disc herniation at L5-S1 impinging significantly on the neural foramen. IMPRESSION: There is a new left lateral L5-S1 lumbar disc herniation with neural foraminal significant impingemen t compare to old exam. This is probably clinically significant in this patient with left side pain. Multilevel spondylotic changes with disc bulging and disc space narrowing that have progressed somewh at compared to old exam. There is right side L3-4 and L4-5 neural foraminal stenosis. Mild spinal maria c nosis at L4-5.
== END | disposition home or self-care (01) ==
LOC: RADMRIMAIN 11:20
PROVIDERS: ATTEND Nurse Practitioner
DX: M25.78 Osteophyte, vertebrae (principal)
CPT/HCPCS: 72148

== ENCOUNTER → 2022-03-03 | Outpatient (CLI) | payer OTHER ==
--- NOTE | 2022-03-04 08:17 | MR ---
EXAMINATION TYPE: MR cervical spine wo con DATE OF EXAM: 03/03/2022 INDICATION: Patient age:Male; 61 years old; Reason for study: M54.2 cervicalgia; . Neck pain into elaine upper extremities COMPARISON: None TECHNIQUE: Multi planar, multi sequence imaging was performed utilizing: T1-weighted, T2-weighted, an d turbo inversion recovery imaging of the cervical spine. IV Contrast: None FINDINGS: Alignment: The cervical vertebral bodies have grossly preserved heights. Mild retrolisthesis at C4 on C5. Bones: Multilevel degenerative disc disease is noted and most pronounced at the C4-C5 and C5-C6. The re is osteophyte formation on the anterior and lateral aspects of the vertebral bodies. Cord: The spinal cord is unremarkable with regards to their signal intensity and morphology. Discs: Multilevel disc desiccation with disc space loss throughout the cervical spine worst at C4-C5 . Motion limited exam. C2-C3: No significant disc pathology. The spinal canal is patent. Bilateral facet and uncovertebral joint arthropathy are present with moderate bilateral neural foraminal stenosis. C3-C4: A disc osteophyte complex is present which minimally narrows the ventral subarachnoid space. Bilateral facet and uncovertebral joint arthropathy are present with moderate bilateral neural sony inal stenosis. C4-C5: A disc osteophyte complex is present with moderate to severe spinal canal stenosis. Bilateral facet and uncovertebral joint arthropathy are present with moderate bilateral neural foraminal steno sis. C5-C6: A disc osteophyte complex is present with mild spinal canal stenosis. Bilateral facet and unc overtebral joint arthropathy are present with moderate bilateral neural foraminal stenosis. C6-C7: A disc osteophyte complex is present which minimally narrows the ventral subarachnoid space. Bilateral facet and uncovertebral joint arthropathy are present with mild bilateral neural foraminal stenosis. C7-T1: No significant disc pathology. The spinal canal is patent. No neural foraminal stenosis. T1/T2: disc bulge with at least mild spinal canal stenosis. This is seen on sagittal imaging only. IMPRESSION: Motion limited exam. 1. C4-C5 moderate to severe spinal canal stenosis secondary to disc osteophyte complex. 2. Multilevel disc degeneration and arthropathy resulting in multilevel moderate neural foraminal st enosis bilaterally most pronounced in the upper cervical spine extending from C2 C5 C6.
== END | disposition home or self-care (01) ==
LOC: RADMRIMAIN 13:19
PROVIDERS: ATTEND Nurse Practitioner
DX: M54.2 Cervicalgia (principal)
CPT/HCPCS: 72141

== ENCOUNTER → 2022-03-30 | Outpatient (CLI) | payer OTHER ==
--- NOTE | 2022-03-30 18:49 | MR ---
EXAMINATION TYPE: MR shoulder RT wo con DATE OF EXAM: 03/30/2022 COMPARISON: None HISTORY: Right shoulder pain x 3 weeks. Multiplanar multiecho imaging of the right shoulder performed with no contrast. There is shoulder joint effusion. The supraspinatus tendon appears intact. No retraction. There is sp urring and slight increased fluid at the AC joint. The biceps tendon is intact. The glenoid marzena appear intact. Subscapularis tendon is intact. The inf raspinatus tendon is intact. There are degenerative cysts in the greater tuberosity humerus. IMPRESSION: No evidence of rotator cuff tear. There is moderate shoulder joint effusion is suggestive of some non specific synovitis mild arthritic changes at the AC joint.
--- NOTE | 2022-03-30 18:58 | MR ---
EXAMINATION TYPE: MR shoulder LT wo con DATE OF EXAM: 03/30/2022 COMPARISON: None HISTORY: Left shoulder pain x 6 years. Multiplanar multi echo imaging of the left shoulder performed with no contrast. The glenoid marzena appear intact. Subscapularis tendon is intact. Biceps tendon is intact. There is mi ld shoulder joint effusion. There is fluid around the biceps tendon. The supraspinatus tendon is intact. No retraction. Minor spurring but no significant subacromial imp ingement. There is some increased fluid and edema at the AC joint. The infraspinatus tendon is intact. No evidence of a fracture. There is mild subchondral edema in the anterior glenoid. IMPRESSION: No evidence of rotator cuff tear. Mild joint effusion. Mild subchondral edema in the anterior glenoid consistent with a bone bruise or degenerative phenomenon. Mild osteoarthritis in the AC joint.
== END | disposition home or self-care (01) ==
LOC: RADMRIMAIN 11:30
PROVIDERS: ATTEND Nurse Practitioner
DX: M19.012 Primary osteoarthritis, left shoulder (principal); M19.011 Primary osteoarthritis, right shoulder; M25.462 Effusion, left knee; M25.511 Pain in right shoulder; M25.412 Effusion, left shoulder; M25.411 Effusion, right shoulder

== ENCOUNTER → 2023-09-14 | Outpatient (CLI) | payer OTHER ==
--- NOTE | 2023-09-14 11:45 | MR ---
EXAMINATION TYPE: MR lumbar spine wo con DATE OF EXAM: 09/14/2023 COMPARISON: 06/28/2021 HISTORY: Chronic lower back pain, LLE radiculopathy. TECHNIQUE: T1 and T2 axial and sagittal images of the lumbar spine are submitted. FINDINGS: There is no abnormal signal seen within the visualized spinal cord or paraspinal soft tissu es. At L1-2 there is there is a moderate-sized broad-based right paracentral disc herniation with moderat e effacement of thecal sac. There appears to be disc signal which appears extruded and extending erick g the upper margin of the L2 vertebral body. Cannot exclude a small sequestered fragment along the la teral anterior left margin of the spinal canal reference axial image 29 series 601. Results in canal stenosis with contribution from facet arthropathy. Bilateral foraminal encroachment. At L2-3 there is moderate degenerative disc disease with facet arthropathy and ligamentum flavum hype rtrophy. Diffuse disc bulging results in moderate canal stenosis and mild bilateral foraminal approac h. At L3-4 there is moderate degenerative disc disease with diffuse disc bulging or protrusion slightly greater paracentrally the right. Facet arthropathy and ligamentum flavum hypertrophy contribute to mo derate canal stenosis and bilateral foraminal encroachment greater on the right. At L4-5 there is a grade 1 anterolisthesis with facet arthropathy. Broad-based disc bulging with liga mentum flavum hypertrophy and moderate canal stenosis. Moderate right and mild left foraminal encroac hment. At L5-S1 there is vacuum disc with severe degenerative disc disease. Broad-based disc bulging and fac et arthropathy with mild central stenosis. Lateral recess stenosis greater on the left. Mild to moder ate left foraminal encroachment and mild right foraminal approach. IMPRESSION: 1. There is a moderate to large sized central right paracentral disc herniation at L1-L2 with disc ex trusion posterior to the L2 vertebral body. Findings result in canal stenosis and foraminal encroachm ent. 2. Multilevel degenerative disc disease, disc bulging or protrusion resulting in multilevel canal maria c nosis and foraminal encroachment as discussed above.
== END | disposition home or self-care (01) ==
LOC: RADMRIMAIN 10:29
DX: M51.17 Intervertebral disc disorders with radiculopathy, lumbosacral region (principal); M47.27 Other spondylosis with radiculopathy, lumbosacral region; M51.26 Other intervertebral disc displacement, lumbar region; M48.061 Spinal stenosis, lumbar region without neurogenic claudication; M99.73 Connective tissue and disc stenosis of intervertebral foramina of lumbar region
CPT/HCPCS: 72148